=== PATIENT | female | born 1950 | race Caucasian/White ===

== ENCOUNTER 2022-01-31 06:55 | Day surgery (SDC) | payer OTHER, SELFPAY ==
[2022-01-31] VITALS (7 sets, daily range): BP systolic 110–124; BP diastolic 73–96; PULSE 79–94; RESP 16; TEMP 36.4–36.8; O2SAT 92–100; BMI 40.0
[2022-01-31] MEDS: Lactated Ringers 1,000 ML 15 ML IV (07:37)
--- NOTE | 2022-01-31 07:56 | DCINST_ITS ---
Discharge Instructions Diet Discharge Diet: No restrictions Activity Discharge Activity: Return to Normal Activity Dressing / Incision Call your doctor if your incision/area has: Increased Pain/ Swelling Follow Up Care Please Follow Up With: Arnie Saldivar MD When: 3 weeks Test Results: Test results from this visit will be discussed in further detail at your follow- up appointment, if applicable. Discharge Plan Admission Attending Provider: Arnie Saldivar Primary Care Provider: Sosa Kern Discharge Orders/Prescriptions Prescriptions: No Action multivitamin Tablet 1 tab PO DAILY rabeprazole 20 mg tablet,delayed release (DR/EC) 1 tab PO DAILY famotidine 40 mg tablet 1 tab PO DAILY Label Comments: tablet acetaminophen 500 mg Tablet 500 mg PO Q6H PRN (Reason: Pain) montelukast 10 mg tablet 1 tab PO DAILY Label Comments: TAKE 1 TABLET BY MOUTH ONCE DAILY AT BEDTIME oxybutynin chloride 5 mg tablet 1 tab PO DAILY Label Comments: tablet fluticasone propionate 50 mcg/actuation spray,suspension 1 spray INTRANASAL BID ezetimibe 10 mg tablet 1 tab PO DAILY cholecalciferol (vitamin D3) [Vitamin D3] 125 mcg (5,000 unit) Tablet 125 mcg PO DAILY Probiotic 20 billion cell Capsule 20,000 mmu cells PO DAILY Rx Instructions: administer with a meal calcium 26-vit D3-magnesium 15 167 mg calcium- 1.67 mcg-83 mg Capsule 1 cap PO DAILY Referrals / Follow Up: Sosa Kern DO [Primary Care Provider] - Disposition Disposition (needs filled in before D/C Order can be placed): Home, Self Care
--- NOTE | 2022-01-31 07:57 | PCM.OPRPT ---
Problems Associated Problem List Diagnoses (1) Chronic serous otitis media of both ears: Report of Operation Date of Procedure: 01/31/22 Pre-Operative Diagnosis: chronic serous otitis Post-Operative Diagnosis: chronic serous otitis Surgery/Procedure Performed:: placement pressure equalization tube, left ear Surgeon: Arnie Saldivar Type of Anesthesia: General Description of Procedure: on the day of the procedure, after appropriate informed consent was obtained the patient was brought to the operating room and placed in supine position on the operating table. she was placed under mask anesthesia. the left ear was examined using the bilateral operating microscope. a speculum was placed. the tympanic membrane was used in its entirety and found to be intact. a radial myringotomy was made inferiorly and a serous effusion was suctioned. a T tube was placed. the right ear was examined using the bilateral operating microscope. a speculum was placed. the tympanic membrane was used in its entirety and found to be intact. a radial myringotomy was made in the anterior/inferior quadrant. a T tube was placed. she was awoken from anesthesia and transferred to the PACU in stable condition.
[2022-01-31] MEDS: Ciprofloxacin 0.3% 2.5ml Bottle 1 DRP (08:34)
[2022-01-31] MEDS: Acetaminophen 325 MG Tablet PO (09:15)
== END 2022-01-31 09:28 | disposition home or self-care (01) ==
LOC: SDC 06:57 → AC 06:59
PROVIDERS: PCP Family Medicine; Referring Provider Otolaryngology; Visit Provider Otolaryngology
PROC: (CPT 69436; principal; 2022-01-31 08:25)
DX: H65.23 Chronic serous otitis media, bilateral (principal); H69.82 Other specified disorders of Eustachian tube, left ear; K21.9 Gastro-esophageal reflux disease without esophagitis
CPT/HCPCS: 69436; 00126; J7120; J2405

== ENCOUNTER → 2022-12-06 | Outpatient (CLI) | payer MEDICARE, SELFPAY ==
--- NOTE | 2022-12-06 08:18 | CT_ITS ---
STUDY: CT MAXILLOFACIAL SINUSES REASON FOR EXAM: Female, 72 years old. CHRONIC SINUATUS RADIATION DOSAGE (If Supplied By Facility): CTDIvol = ( 33.06 ) mGy, DLP = ( 850.38 ) mGycm TECHNIQUE: The patient was scanned in a multi detector CT scanner. High resolution axial imaging was performed without the administration of intravenous contrast material. Sagittal and coronal images were reconstructed. Individualized dose optimization techniques were used for this CT. COMPARISON: None. FINDINGS: FRONTAL SINUSES: Normal aeration, without mucosal inflammatory disease. ETHMOIDAL SINUSES: Moderate degree of mucosal thickening of the ethmoid sinuses. MAXILLARY SINUSES: There is partial opacification of the left maxillary sinus. Minimal mucosal thickening in the right maxillary sinus. SPHENOIDAL SINUSES: Mucosal thickening of the right sphenoid sinus. There is patency of the bilateral maxillary infundibuli with normal uncinate processes, ethmoid bullae, and hiatus semilunaris. Normal bilateral middle turbinates. Normal bilateral inferior turbinates. Normal midline nasal septum. There is patency of the bilateral nasal airways. The visualized osseous structures are normal. The visualized bilateral orbital contents are normal. CT/Sinus/Facial Bone IMPRESSION: Mild mucosal thickening of the right sphenoid sinus as well as partial opacification of left maxillary sinus and the ethmoid sinus. Electronically Signed: Ty Gold MD at 15:16 EDT ,
== END | disposition home or self-care (01) ==
PROVIDERS: PCP Family Medicine; Referring Provider Otolaryngology; Visit Provider Otolaryngology
DX: J32.8 Other chronic sinusitis (principal)
CPT/HCPCS: 70486

== ENCOUNTER 2023-04-17 09:42 | Day surgery (SDC) | payer MEDICARE, SELFPAY ==
--- NOTE | 2023-04-10 07:29 | EKG12_ITS ---
Test Reason : PRE OP Blood Pressure : / mmHG Vent. Rate : 094 BPM Atrial Rate : 094 BPM P-R Int : 136 ms QRS Dur : 082 ms QT Int : 340 ms P-R-T Axes : 014 003 031 degrees QTc Int : 425 ms Normal sinus rhythm Septal infarct , age undetermined Abnormal ECG Confirmed by SOFIYA ANDERSON, TONJA ([id number]), city editor YESY SIN ([id number]) on 04/10/2023 2:11:19 PM Referred By: Jaziel Saldivar Confirmed By:TONJA ARRIAZA MD
[2023-04-10 09:08] LABS: Hematocrit 43.5 % (37-47); Hemoglobin 14.3 g/dL (12.0-15.0); Mean Corp Hgb Conc 32.9 g/dL (32-36); Mean Corpuscular Hgb 30.7 pg (27.0-32.0); Mean Corpuscular Volume 93.3 fL (81-99); Mean Platelet Vol. 9.4 fl (6.2-12.0); Platelet Count 258 K/mm3 (150-450); RBC Distribution Width CV 12.8 % (11.6-14.6); RBC Distribution Width SD 43.7 fl (35.1-43.9); Red Blood Count 4.66 M/mm3 (4.2-5.4); White Blood Count 6.2 K/mm3 (4.4-11.0)
[2023-04-10 09:11] LABS: International Normalized Ratio 0.9; Prothrombin Time (Protime)PT. 12.4 SECONDS (11.7-14.9)
[2023-04-10 09:12] LABS: Partial Thromboplast Time 29.4 Seconds (24.1-36.2)
[2023-04-10 09:33] LABS: Anion Gap 5 (5-15); BUN 16 mg/dL (7-18); Chloride 110 mmol/L (98-107); Creatinine, Serum 0.89 mg/dL (0.55-1.02); EST Glomerular Filtration Rate 66 mL/min (>60); Est Glom Filt Rate - Afr Amer 80 mL/min (>60); Glucose 104 mg/dL (74-106); Potassium 4.1 mmol/L (3.5-5.1); Sodium Level 140 mmol/L (136-145)
[2023-04-10 10:18] LABS: AST(SGOT) 14 U/L (15-37); Alanine Aminotransfer ALT/SGPT 21 U/L (13-56); Albumin, Serum 3.7 g/dL (3.2-5.0); Alkaline Phosphatase 84 U/L (45-117); Bilirubin, Direct 0.09 mg/dL (0.00-0.30); Globulin 3.9 g/dL (2.2-4.2); Protein, Total 7.6 g/dL (6.4-8.2)
[2023-04-17] VITALS (10 sets, daily range): BP systolic 119–166; BP diastolic 78–92; PULSE 71–95; RESP 15–120; TEMP 36.1–36.6; O2SAT 93–100; BMI 41.8
--- NOTE | 2023-04-17 | ETH_PTH ---
PATIENT: JOHN BOWMAN LOC: [facility] [place][id number] AGE/SX: 72/F ROOM: RE04/17/[address]: Dr. Jorge Saldivar MD : 1950 BED: DIS: 04/17/2023 SPEC #: [id number] RECD: 04/17/23 15:14 STATUS: FELICE REShankar #: [id number] TANYA: 04/17/23 00:[address]: Jorge Saldivar DEPT: SURGICAL PATHOLOGY RECD BY: Avani Camejo ENTERED: 04/18/23 09:54 SP TYPE: ETH TISS OTHR DR: Dr. Sosa Kern DO Tissues: A - Ethmoid sinus, NOS B - Ethmoid sinus, NOS Procedures: Decalcification bone/plaque Surgery Specimen Level IV HEADER OPERATION: Functional endoscopic sinus surgery with Navigation, septoplasty PRE-OP DIAGNOSIS: Allergic rhinitis, hypertrophy of nasal turbinates, nasal congestion TISSUE SUBMITTED: A - Right sinus contents, B - Left sinus contents MICROSCOPIC DIAGNOSIS A. Right sinus contents: Fragments of respiratory mucosa with chronic inflammation and bone. B. Left sinus contents: Fragments of respiratory mucosa with chronic inflammation and bone. MIRTA:homa 04/23/2023 MICROSCOPIC DESCRIPTION Slides are reviewed. GROSS DESCRIPTION A - Received in fixative is one container labeled with the patient's name and designated right sinus contents. The specimen consists of multiple irregular and gritty fragments of light to dark dunaway soft tissue that in aggregate measure 2.5 x 2.0 x 0.2 cm. The specimen is totally submitted in one cassette after decalcification. B. Received in fixative is one container labeled with the patient's name and designated left sinus contents. The specimen consists of multiple irregular and gritty fragments of light to dark dunaway soft tissue that in aggregate measure 2.5 x 2.0 x 0.2 cm. The specimen is totally submitted in one cassette after decalcification. / AM:homa 04/18/2023 TC:3 CPT: 62295 x2, 87743 x2
[2023-04-17] MEDS: Lactated Ringers 1,000 ML 15 ML IV ×2 (10:12→15:46)
[2023-04-17] MEDS: Clindamycin 900 MG/50 ML BAG 75 MG IV (12:04)
--- NOTE | 2023-04-17 12:07 | DCINST_ITS ---
Discharge Instructions Diet Discharge Diet: No restrictions Activity Discharge Activity: Return to Normal Activity Dressing / Incision Call your doctor if your incision/area has: Sudden Increased Bleeding Additional Dressing/Incision Instructions:: irrigate nose with saline [address] mupirocin ointment in both nostrils twice daily. sleep with head of bed elevated. Follow Up Care Please Follow Up With: Jorge Saldivar MD When: 1 week Test Results: Test results from this visit will be discussed in further detail at your follow- up appointment, if applicable. Discharge Plan Admission Attending Provider: Jorge Saldivar Primary Care Provider: Sosa Kern Discharge Orders/Prescriptions Prescriptions: No Action multivitamin Tablet 1 tab PO DAILY famotidine 40 mg tablet 1 tab PO QHS Patient Comments: tablet acetaminophen 500 mg Tablet 500 mg PO Q6H PRN (Reason: Pain) montelukast 10 mg tablet 1 tab PO QHS Patient Comments: TAKE 1 TABLET BY MOUTH ONCE DAILY AT BEDTIME fluticasone propionate 50 mcg/actuation spray,suspension 1 spray INTRANASAL BID ezetimibe 10 mg tablet 1 tab PO QHS cholecalciferol (vitamin D3) [Vitamin D3] 125 mcg (5,000 unit) Tablet 125 mcg PO DAILY Probiotic 20 billion cell Capsule 20,000 mmu cells PO DAILY Rx Instructions: administer with a meal rosuvastatin 5 mg tablet 5 mg PO TUTHSA Patient Comments: TAKE 1 TABLET BY MOUTH ONCE DAILY 3 DAYS A WEEK DIRECTED Ca-D3-mag [id number]-luis alfredo-bor [Calcium 600-D3 Plus (mag-zinc)] 600 mg calcium- 20 mcg-50 mg tablet 3 tab PO DAILY fexofenadine-pseudoephedrine [24HR Allergy-Congestion Relief] 180-240 mg tablet extended release 24 hr 1 tab PO DAILY omega 4-tzz-fgq-fish oil [Fish Oil] 1,200 (144-216) mg capsule 1 cap PO DAILY diclofenac sodium 1 % gel 2 g TOPICAL DAILY PRN PRN (Reason: KNEE PAIN) Patient Comments: APPLY 2 GRAMS TOPICALLY TO AFFECTED AREA THREE TIMES DAILY NEEDED Referrals / Follow Up: Sosa Kern DO [Primary Care Provider] - Disposition Disposition (needs filled in before D/C Order can be placed): Home, Self Care
--- NOTE | 2023-04-17 12:09 | OP.PCM_ITS ---
Problems Associated Problem List Diagnoses (1) Chronic serous otitis media of both ears: (2) Eustachian tube dysfunction: (3) Chronic pansinusitis: (4) Deviated nasal septum: (5) Nasal turbinate hypertrophy: (6) Nasal congestion: Report of Operation Date of Procedure: 04/17/23 Pre-Operative Diagnosis: 1. nasal congestion 2. nasal septal deviation 3. inferior turbinate hypertrophy, right and left 4. chronic pansinusitis 5. eustachian tube dysfunction, right and left 6. chronic serous otitis media, right and left Post-Operative Diagnosis: 1. nasal congestion 2. nasal septal deviation 3. inferior turbinate hypertrophy, right and left 4. chronic pansinusitis 5. eustachian tube dysfunction, right and left 6. chronic serous otitis media, right and left Surgery/Procedure Performed:: 1. endoscopic maxillary antrostomy with removal of contents, right and left 2. endoscopic total ethmoidecotmy, right and left 3. endoscopic sphenoidotomy with removal of contents, right and left 4. endoscopic frontal sinus exploration removal of contents, right and left 5. septoplasty 6. submucous and bony resection inferior turbinates, right and left 7. placement pressure equalization tubes, right and left 8. eustachian tube dilation, right and left 9. image guidance navigation Surgeon: Jorge Saldivar Type of Anesthesia: General Description of Procedure: On the day of the procedure, after appropriate informed consent was obtained, the patient was brought to the operating room and placed in a supine position on the operating room table. The patient was placed under general endotracheal anesthesia by the anesthesiologist. The endotracheal tube was secured.? image guidance navigation was set up on the face and accuracy was confirmed.? the nose was injected with lidocaine/epinephrine and decongested with oxymetazoline- soaked pledgets.? a marginal incision was made with a #15 blade on the left side.? a submucoperichondrial plane was developed on the patient's left side with a wes elevator.? this was taken posteriorly to the bony/cartilaginous junction and inferiorly to the maxillary crest.? after an L-strut was marked, a large leftward defection and 2cm bony spur were removed with a D-knife and jeffrey lincoln.? the head of the right and left turbinates were injected with lidocaine/epinephrine.? the head of the left inferior turbinate was incised with a 15 blade, dissected submucosally with a wes elevator, reduced using suction electrocautery and outfractured using a boies elevator. bony reduction was performed with a thru cut the head of the right inferior turbinate was incised with a 15 blade, dissected submucosally with a wes elevator, reduced using suction electrocautery and outfractured using a boies elevator.? bony reduction was performed with a thru cut the zero degree endoscope was used to evaluate the nasal cavity.? the superior attachment of the right and left middle turbinate and uncinate processes were injected with lidocaine/epinephrine.? the left nasal cavity was evaluated.? the middle turbinate was medialized.? a maxillary antrostomy and uncinectomy were performed with a wes elevator and a jonathon cut.? the antrostomy was widened with a back-biter.? purulent material was evacuated.? the ethmoid bulla was entered bluntly with the suction.? a total ethmoidectomy was performed with a curette and an upgoing blakesley.? this was taken superiorly to the skull base and laterally to the lamina.? a stankewicz maneuver was performed and no laminar defect was noted.? the natural sphenoid os was widened with the microdebrider and contents were evacuated.? fungus was removed from the sphenoethmoidal recess.? the frontal recess was explored and contents were evacuated.? hemostasis was achieved with suction cautery; georges was placed. the right nasal cavity was evaluated.? the middle turbinate was medialized.? a maxillary antrostomy and uncinectomy were performed with a wes elevator and a jonathon cut.? the antrostomy was widened with a back-biter.? purulent material was evacuated.? the ethmoid bulla was entered bluntly with the suction.? a total ethmoidectomy was performed with a curette and an upgoing blakesley.? this was taken superiorly to the skull base and laterally to the lamina.? a stankewicz maneuver was performed and no laminar defect was noted.? the natural sphenoid os was widened with the microdebrider and contents were evacuated.? fungus was removed from the sphenoethmoidal recess.? the frontal recess was explored and contents were evacuated.? hemostasis was achieved with suction cautery; georges was placed. the zero degree endoscope was used to evaluate the nasal cavity after they were decongested with oxymetazoline soaked pledgets.? the acclarent AERA system was advanced into the right nasal cavity until the eustachian tube orifice was visualized.? the catheter was advanced into the eustachian tube until a soft stop was felt.? it was inflated to 12 roxie for two minutes and removed.? the acclarent AERA system was advanced into the left nasal cavity until the eustachian tube orifice was visualized.? the catheter was advanced into the eustachian tube until a soft stop was felt.? it was inflated to 12 roxie for two minutes and removed. the left ear was examined with the binocular operating microscope.? a speculum was placed.? the tympanic membrane was viewed in its entirety and found to be intact.? a radial myringotomy was made in the anterior/inferior quadrant.? a T tube was placed.? floxin otic drops were instilled.? the right ear was examined with the binocular operating microscope.? a speculum was placed.? the tympanic membrane was viewed in its entirety and found to be intact.? a radial myri ngotomy was made in the anterior/inferior quadrant.? a T tube was placed.? floxin otic drops were instilled. zhang splints were sutured into place.? a nasogastric tube was inserted orally a nd contents were evacuated. she was awoken from anesthesia and transferred to the PACU in stable condition.
[2023-04-17] MEDS: Oxymetazoline 0.05% 1 SPRAY SPRAY.BTL 15 SPRAY ×2 (12:33→13:46)
[2023-04-17] MEDS: Lidocaine 2% /Epi 1:100 (20ml) 20 ML VIAL (12:35)
[2023-04-17] MEDS: Mupirocin Ointment 22gm Tube 1 APPLIC (14:34)
[2023-04-17] MEDS: Ciprofloxacin 0.3% 2.5ml Bottle 1 DRP (14:38)
== END 2023-04-17 17:25 | disposition home or self-care (01) ==
LOC: SDC 09:47 → AC 09:47
PROVIDERS: Anesthesiology; PCP Family Medicine; Referring Provider Otolaryngology; Visit Provider Otolaryngology
PROC: (CPT 30520; principal; 2023-04-17 11:00)
DX: J34.2 Deviated nasal septum (principal); J34.3 Hypertrophy of nasal turbinates; H69.83 Other specified disorders of Eustachian tube, bilateral; J32.4 Chronic pansinusitis; H65.23 Chronic serous otitis media, bilateral; K21.9 Gastro-esophageal reflux disease without esophagitis; E78.00 Pure hypercholesterolemia, unspecified; J30.1 Allergic rhinitis due to pollen
CPT/HCPCS: 30520; 69706; 30140; 31267; 31276; 69436; 31288; 00160; 36415; 80048; 80076; 85027; 85610; 85730; 88305; 88311; 93005; J7040; J7120; J2405

== ENCOUNTER → 2024-09-12 | Outpatient (CLI) | payer MEDICARE, SELFPAY | END | disposition home or self-care (01) | LOC: LABSPEC 15:29 | PROVIDERS: PCP Family Medicine; Referring Provider Otolaryngology; Visit Provider Otolaryngology | DX: J32.9 Chronic sinusitis, unspecified (principal) | CPT/HCPCS: 87070; 87077; 87186; 87205 ==